=== PATIENT | male | born 1965 | race Caucasian/White ===

== ENCOUNTER 2017-05-04 11:21 | Emergency (ER) | payer OTHER ==
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
[2017-05-04] MEDS ORDERED: IBUPROFEN 600 MG TAB PO ONE (12:16)
[2017-05-04 16:14] VITALS: BP 104/74
== END 2017-05-04 16:12 | disposition home or self-care (01) ==
LOC: EDUNIT#
DX: S29.9XXA Unspecified injury of thorax, initial encounter (principal); S16.1XXA Strain of muscle, fascia and tendon at neck level, initial encounter; S63.8X1A Sprain of other part of right wrist and hand, initial encounter; V49.40XA Driver injured in collision with unspecified motor vehicles in traffic accident, initial encounter; Y92.410 Unspecified street and highway as the place of occurrence of the external cause; Y99.8 Other external cause status; Y93.89 Activity, other specified
CPT/HCPCS: L3984